=== PATIENT | female | born 1935 | race Caucasian/White ===

== ENCOUNTER 2017-11-30 02:11 | Emergency (ER) | payer MEDICARE, BC | END 2017-11-30 04:39 | disposition home or self-care (01) | LOC: ERS 02:11 | DX: E11.65 Type 2 diabetes mellitus with hyperglycemia (principal); E78.5 Hyperlipidemia, unspecified; I10 Essential (primary) hypertension | CPT/HCPCS: 36416; 99284 ==

== ENCOUNTER 2023-01-14 08:52 | Emergency (ER) | payer MEDICARE, BC ==
[2023-01-14 10:04] LABS: #Basophils 0.1 thou/uL (0.0-0.2); #Monocytes 0.6 thou/uL (0.11-0.59); #Neutrophils 10.1 thou/uL (1.40-6.50); %Basophils 0.4 % (0.0-1.0); %Eosinophils 0.3 % (0.0-10.0); %Lymphocytes 3.2 % (21.0-51.0); %Monocytes 5.1 % (0.0-10.0); %Neutrophils 90.5 % (42.0-75.0); Hematocrit 32.8 % (36.0-47.0); Hemoglobin 10.7 g/dL (12.0-16.0); Mean Corpuscular HGB CONC 32.6 g/dL (32.0-36.0); Mean Corpuscular Hemoglobin 28.3 pg (27.0-31.0); Mean Corpuscular Volume 86.8 fl (78.0-98.0); Mean Platelet Volume 10.5 fL (7.4-10.4); Platelet Count 248 10x3/uL (130-400); RBC Distribution Width 15.1 % (11.5-14.5); Red Blood Cell (RBC) Count 3.78 mill/uL (4.20-5.40); White Blood Cell (WBC) Count 11.2 10x3/uL (4.8-10.8)
[2023-01-14 10:07] LABS: Bilirubin Negative (Negative); Blood, Urine 1+ (Negative); CAUTI Indications for Culture Dysuria,urgency,freq; Clarity Turbid (Clear); Glucose, Urine (Dipstick) Normal (Negative); Ketone, Urine 10 mg/dL (Negative); Leukocyte Negative Leu/uL (Negative); Nitrite Negative (Negative); Protein, Urine (Dipstick) 50 mg/dL (Neg-Trace); RBC/HPF 0-3 HPF (0-3); Specific Gravity, Urine 1.025 (1.002-1.036); Squamous Epithelial None Seen HPF (0-3); Urobilinogen Normal mg/dL (Less than 2); WBC/HPF 0-3 HPF (0-3); pH, Urine 5.5 (5.0-9.0)
[2023-01-14 10:09] LABS: Bacteria/HPF 1+ HPF (None Seen)
[2023-01-14 10:10] LABS: Urine Culture Reflex No No
[2023-01-14 10:26] LABS: ALT (SGPT) 16 U/L (8-55); AST (SGOT) 26 U/L (5-34); Albumin 3.9 g/dL (3.4-4.8); Alkaline Phosphatase 61 U/L (40-110); Anion Gap 16 mmol/L (10-20); BUN (Urea Nitrogen) 37 mg/dL (9.8-20.1); Bilirubin, Total 0.4 mg/dL (0.2-1.2); CK (CPK) 296 U/L (29-168); Calc. Creatinine Clearance 0 mL/min (70-130); Calcium 8.5 mg/dL (7.8-10.44); Carbon Dioxide 19 mmol/L (23-31); Chloride 107 mmol/L (98-107); Estimated GFR 36; Globulin 2.5 g/dL (2.4-3.5); Glucose 276 mg/dL (83-110); Potassium 3.7 mmol/L (3.5-5.1); Protein, Total 6.4 g/dL (5.8-8.1); Sodium 138 mmol/L (136-145)
== END 2023-01-14 12:17 | disposition home or self-care (01) ==
LOC: ERS 08:52
DX: M25.552 Pain in left hip (principal); E11.9 Type 2 diabetes mellitus without complications; E03.9 Hypothyroidism, unspecified; E78.5 Hyperlipidemia, unspecified; I10 Essential (primary) hypertension; W17.89XA Other fall from one level to another, initial encounter
CPT/HCPCS: 51701; 80053; 81001; 82550; 85025; 93005; 96360

== ENCOUNTER 2023-03-06 19:48 | Inpatient (IN) | payer MEDICARE, BC ==
[~2023-03-06 19:48] MED LIST: Iopamidol-370 76% 500 ML MDV (1 ML CHARGE) ONE
[2023-03-06 20:08] LABS: Analyzer IN Cardio ER; Base Excess (BEa) -18.9 mEq/L (-2.0 to +3.0); CO2 Tension 36.6 mmHg (35.0-45.0); Calcium, Ionized (arterial) 1.16 mmol/L (1.12-1.30); Carboxyhemoglobin (COHb) 0.3 gm% (0.0-3.0); Hematocrit-ABG 34 % (36.0-47.0); Hemoglobin (Hb) 11.7 g/dL (12.0-16.0); O2 Tension (PaO2), arterial 398.6 mmHg (> 60.0); Potassium - ABG Lab 4.54 mmol/L (3.70-5.30)
[2023-03-06 20:12] LABS: #Basophils 0.1 thou/uL (0.0-0.2); #Monocytes 0.4 thou/uL (0.11-0.59); %Basophils 0.7 % (0.0-1.0); %Lymphocytes 25.8 % (21.0-51.0); %Monocytes 4.9 % (0.0-10.0); %Neutrophils 68.3 % (42.0-75.0); Hemoglobin 10.7 g/dL (12.0-16.0); Mean Corpuscular HGB CONC 30.6 g/dL (32.0-36.0); Mean Corpuscular Hemoglobin 28.7 pg (27.0-31.0); Mean Corpuscular Volume 93.8 fl (78.0-98.0); Mean Platelet Volume 11.7 fL (7.4-10.4); Platelet Count 215 10x3/uL (130-400); RBC Distribution Width 15.8 % (11.5-14.5); Red Blood Cell (RBC) Count 3.73 mill/uL (4.20-5.40); White Blood Cell (WBC) Count 8.8 10x3/uL (4.8-10.8)
[2023-03-06] MEDS ORDERED: Fentanyl CADD 100 ML IV SCH (20:15)
[2023-03-06 20:37] LABS: ALT (SGPT) 16 U/L (8-55); AST (SGOT) 32 U/L (5-34); Albumin 3.8 g/dL (3.4-4.8); Alkaline Phosphatase 72 U/L (40-110); Anion Gap 27 mmol/L (10-20); BUN (Urea Nitrogen) 22 mg/dL (9.8-20.1); Bilirubin, Total 0.3 mg/dL (0.2-1.2); Calc. Creatinine Clearance 0 mL/min (70-130); Calcium 8.7 mg/dL (7.8-10.44); Carbon Dioxide 11 mmol/L (23-31); Chloride 101 mmol/L (98-107); Estimated GFR 31; Globulin 3.4 g/dL (2.4-3.5); Glucose 321 mg/dL (83-110); Lipase 31 U/L (8-78); Magnesium 1.3 mg/dL (1.6-2.6); Potassium 4.6 mmol/L (3.5-5.1); Protein, Total 7.2 g/dL (5.8-8.1); Sodium 134 mmol/L (136-145)
[2023-03-06 20:49] LABS: Troponin I 0.321 ng/mL (< 0.028)
[2023-03-06] MEDS ORDERED: Sodium Chloride 0.9% 100 ML ONE (20:51)
[2023-03-06] MEDS ORDERED: cefTRIAXone (ROCEPHIN) 1 GM VIAL ONE (20:51)
[2023-03-06] MEDS ORDERED: Azithromycin 500 MG VIAL ONE (20:51)
[2023-03-06] MEDS ORDERED: cefTRIAXone (ROCEPHIN) 2 GM VIAL ONE (20:53)
[2023-03-06 21:01] LABS: Bacteria/HPF 1+ HPF (None Seen); Bilirubin Negative (Negative); Blood, Urine 2+ (Negative); CAUTI Indications for Culture Urological Procedure; Clarity Clear (Clear); Glucose, Urine (Dipstick) 70 mg/dL (Negative); Ketone, Urine Negative (Negative); Leukocyte Negative Leu/uL (Negative); Nitrite Negative (Negative); Protein, Urine (Dipstick) 50 mg/dL (Neg-Trace); Specific Gravity, Urine 1.043 (1.002-1.036); Squamous Epithelial None Seen HPF (0-3); Urobilinogen Normal mg/dL (Less than 2); WBC/HPF 0-3 HPF (0-3); pH, Urine 6.5 (5.0-9.0)
[2023-03-06 21:02] LABS: Urine Culture Reflex Yes Yes
[2023-03-06] MEDS ORDERED: Acetaminophen 650 MG Suppository ONE (21:05)
[2023-03-06] MEDS ORDERED: Aspirin 300 MG Suppository ONE (21:06)
[2023-03-06] MEDS ORDERED: Magnesium 2 GM/50 ML BAG (IN WATER) ONE (21:06)
[2023-03-06 21:28] LABS: SARS-CoV-2 NAA Rapid Test Not Detected (NotDetected)
[2023-03-06] MEDS ORDERED: Insulin Regular 300 UNITS/3 ML VIAL ONE (21:36)
[2023-03-06] MEDS ORDERED: Acetaminophen 325 MG TAB PO PRN (21:56)
[2023-03-06] MEDS ORDERED: Ondansetron PF 4 MG/2 ML Vial IVP PRN (21:56)
[2023-03-06] MEDS ORDERED: Acetaminophen 650 MG Suppository PR PRN (21:56)
[2023-03-06] MEDS ORDERED: Ondansetron ODT 4 MG TAB PO PRN (21:56)
[2023-03-06] MEDS ORDERED: Fentanyl BOLUS 250 ML IVPB PRN (22:15)
[2023-03-06] MEDS ORDERED: Lorazepam 2 MG/ML VIAL SLOW IVP PRN (22:15)
[2023-03-06] MEDS ORDERED: Propofol 1,000 MG/100 ML VIAL IV PRN (22:15)
[2023-03-06] MEDS ORDERED: Electrolyte Replacement Protocol 1 EACH FS SCH (22:15)
[2023-03-06] MEDS ORDERED: Ventilator Sedation Protocol 1 EACH FS SCH (22:15)
[2023-03-06] MEDS ORDERED: Morphine 2 MG/ML VIAL SLOW IVP PRN (22:15)
[2023-03-06] MEDS ORDERED: Propofol BOLUS 1,000 MG/100 ML VIAL IV PRN (22:15)
[2023-03-06] MEDS ORDERED: Metoprolol Tartrate 5 MG/5 ML VIAL IV PRN (22:52)
[2023-03-06] MEDS ORDERED: Oseltamivir 6 MG/ML ORAL SUSP PO SCH (23:00)
[2023-03-06] MEDS: Sodium Bicarbonate 150 MEQ in Sterile Water 1,000 ML IV SCH (23:05)
[2023-03-06 23:23] LABS: Actual Bicarbonate (HCO3a) 10.3 mEq/L (22-28); Puncture Site RBA; pH, Arterial 7.069 (7.35-7.45)
[2023-03-06] MEDS ORDERED: Magnesium 2 GM/50 ML(in water) 2 GM in Premix 1 BAG IVPB SCH (23:30)
[2023-03-06] MEDS ORDERED: Sodium Bicarb 50 MEQ/50 ML Abboject 8.4% SYRINGE IVP SCH (23:45)
[2023-03-06] MEDS ORDERED: Sodium Bicarb 50 MEQ/50 ML VIAL ONE (23:50)
[2023-03-06 23:57] LABS: Base Excess (BEa) -3.6 mEq/L (-2.0 to +3.0); Calcium, Ionized (arterial) 1.09 mmol/L (1.12-1.30); Carboxyhemoglobin (COHb) 0.1 gm% (0.0-3.0); Hematocrit-ABG 31 % (36.0-47.0); Hemoglobin (Hb) 10.6 g/dL (12.0-16.0); O2 Tension (PaO2), arterial 72.8 mmHg (> 60.0); Potassium - ABG Lab 3.76 mmol/L (3.70-5.30); pH, Arterial 7.513 (7.35-7.45)
[2023-03-06 23:58] LABS: CO2 Tension 22.9 mmHg (35.0-45.0); Puncture Site RRA
[2023-03-06 23:59] LABS: ALV-art Gradient 183.775 mmHg (0-20)
[2023-03-07 00:02] LABS: Lactic Acid 3.8 mmol/L (0.5-2.2)
[2023-03-07 00:12] LABS: Troponin I 1.206 ng/mL (< 0.028)
[2023-03-07] MEDS ORDERED: Sodium Chloride 0.9% 500 ML IV SCH (01:00)
[2023-03-07 01:30] VITALS: BMI 20.1
[2023-03-07 03:45] LABS: #Monocytes 0.5 thou/uL (0.11-0.59); #Neutrophils 9.8 thou/uL (1.40-6.50); %Basophils 0.1 % (0.0-1.0); %Lymphocytes 5.1 % (21.0-51.0); %Monocytes 4.5 % (0.0-10.0); %Neutrophils 89.8 % (42.0-75.0); Hemoglobin 9.3 g/dL (12.0-16.0); Mean Corpuscular HGB CONC 32.1 g/dL (32.0-36.0); Mean Corpuscular Hemoglobin 27.8 pg (27.0-31.0); Mean Platelet Volume 11.2 fL (7.4-10.4); Platelet Count 157 10x3/uL (130-400); RBC Distribution Width 15.7 % (11.5-14.5); Red Blood Cell (RBC) Count 3.35 mill/uL (4.20-5.40); White Blood Cell (WBC) Count 10.9 10x3/uL (4.8-10.8)
[2023-03-07 04:11] LABS: Anion Gap 18 mmol/L (10-20); BUN (Urea Nitrogen) 24 mg/dL (9.8-20.1); Calc. Creatinine Clearance 27 mL/min (70-130); Calcium 7.7 mg/dL (7.8-10.44); Carbon Dioxide 21 mmol/L (23-31); Chloride 100 mmol/L (98-107); Estimated GFR 44; Glucose 191 mg/dL (83-110); Potassium 3.5 mmol/L (3.5-5.1); Sodium 135 mmol/L (136-145)
[2023-03-07 04:16] LABS: Magnesium 7.6 mg/dL (1.6-2.6); Troponin I 3.951 ng/mL (< 0.028)
[2023-03-07] MEDS ORDERED: Heparin 25,000 units/D5W 500 ML IVPB SCH ×2 (04:45→06:15)
[2023-03-07] MEDS ORDERED: Heparin 10,000 UNITS/ 10 ML VIAL SLOW IVP SCH ×3 (04:45→07:45)
[2023-03-07 05:28] LABS: Hematocrit 28.8 % (36.0-47.0); Hemoglobin 9.3 g/dL (12.0-16.0); Platelet Count 161 10x3/uL (130-400)
[2023-03-07 05:38] LABS: Mean Corpuscular Volume 86.6 fl (78.0-98.0)
[2023-03-07] MEDS ORDERED: DC ALL OTHER HEPARIN PRODUCTS FS SCH (06:45)
[2023-03-07] MEDS ORDERED: Heparin 25,000 units/D5W 500 ML IV SCH (06:45)
[2023-03-07 07:42] LABS: Actual Bicarbonate (HCO3a) 23.8 mEq/L (22-28); Base Excess (BEa) 0.9 mEq/L (-2.0 to +3.0); CO2 Tension 32.2 mmHg (35.0-45.0); Calcium, Ionized (arterial) 1.03 mmol/L (1.12-1.30); Carboxyhemoglobin (COHb) 0.3 gm% (0.0-3.0); Hematocrit-ABG 32 % (36.0-47.0); O2 Tension (PaO2), arterial 124.8 mmHg (> 60.0); Potassium - ABG Lab 3.42 mmol/L (3.70-5.30); pH, Arterial 7.487 (7.35-7.45)
[2023-03-07 07:43] LABS: Puncture Site RRA
[2023-03-07] MEDS ORDERED: Famotidine/PF 20 mg/2ml Vial SLOW IVP SCH (09:00)
[2023-03-07] MEDS ORDERED: DC Sedation Protocol FS ONE (09:26)
[2023-03-07] MEDS: Potassium Chloride 20 MEQ in Premix 1 BAG IVPB SCH ×2 (10:09→11:36)
[2023-03-07] MEDS: Sodium Bicarbonate 150 MEQ in Sterile Water 1,000 ML IV SCH ×2 (10:09→22:17)
[2023-03-07 11:59] LABS: PTT Greater than 250.0 sec (22.9-36.1)
[2023-03-07] MEDS ORDERED: Lisinopril 10 MG TAB PO SCH (14:00)
[2023-03-07 16:01] LABS: Potassium 3.6 mmol/L (3.5-5.1)
[2023-03-07 16:02] LABS: Glucose 200 mg/dL (83-110)
[2023-03-07 18:51] LABS: Glucose 187 mg/dL (83-110)
[2023-03-07] MEDS ORDERED: Dextrose 50% Abboject 50 ML SYRINGE SLOW IVP PRN (20:43)
[2023-03-07] MEDS ORDERED: Glucagon 1 MG/ML KIT IM PRN (20:43)
[2023-03-07] MEDS ORDERED: Dextrose 5% in Water 1,000 ML IV PRN (20:43)
[2023-03-07] MEDS: Azithromycin 500 MG in Sodium Chloride 0.9% 250 ML 250 ML IVPB SCH (21:13)
[2023-03-07] MEDS: cefTRIAXone\\ROCEPHIN 2 GM in Sodium Chloride 0.9% 100 ML IVPB SCH (21:15)
[2023-03-07] MEDS: Insulin Regular 300 UNITS/3 ML VIAL SC PRN (21:28)
[2023-03-07] MEDS: Oseltamivir 6 MG/ML ORAL SUSP PO SCH ×2 (22:16→22:21)
[2023-03-08 00:05] LABS: Glucose 174 mg/dL (83-110)
[2023-03-08 05:48] LABS: #Monocytes 0.5 thou/uL (0.11-0.59); #Neutrophils 9.4 thou/uL (1.40-6.50); %Basophils 0.3 % (0.0-1.0); %Monocytes 4.4 % (0.0-10.0); %Neutrophils 82.9 % (42.0-75.0); Hematocrit 31.6 % (36.0-47.0); Mean Corpuscular HGB CONC 31.6 g/dL (32.0-36.0); Mean Corpuscular Hemoglobin 27.5 pg (27.0-31.0); Mean Corpuscular Volume 87.1 fl (78.0-98.0); Mean Platelet Volume 11.9 fL (7.4-10.4); Platelet Count 199 10x3/uL (130-400); RBC Distribution Width 16.2 % (11.5-14.5); Red Blood Cell (RBC) Count 3.63 mill/uL (4.20-5.40); White Blood Cell (WBC) Count 11.3 10x3/uL (4.8-10.8)
[2023-03-08] MEDS: Levothyroxine Sodium 88 MCG TAB PO SCH (06:07)
[2023-03-08 06:24] LABS: Anion Gap 16 mmol/L (10-20); BUN (Urea Nitrogen) 25 mg/dL (9.8-20.1); Calc. Creatinine Clearance 27 mL/min (70-130); Carbon Dioxide 27 mmol/L (23-31); Cardiac Risk 3.3 (Less than 4.5); Chloride 97 mmol/L (98-107); Cholesterol 130 mg/dl (< 200 Desired); Estimated GFR 44; Glucose 155 mg/dL (83-110); HDL Cholesterol 40 mg/dL (>60 Neg Risk); LDL Cholesterol, Calculated 69 mg/dL; Potassium 3.7 mmol/L (3.5-5.1); Sodium 136 mmol/L (136-145); Triglycerides 106 mg/dL (Less than 150)
[2023-03-08] MEDS: Famotidine 20 MG TAB PO SCH (08:43)
[2023-03-08] MEDS: Aspirin 81 mg Enteric Coated Tablet PO SCH (08:43)
[2023-03-08] MEDS: Atorvastatin Calcium 40 MG TAB PO SCH (08:44)
[2023-03-08] MEDS: Ferrous Sulfate 325 MG TAB PO SCH (08:44)
[2023-03-08] MEDS ORDERED: Lisinopril 10 MG TAB PO SCH (09:00)
[2023-03-08] MEDS: Sodium Bicarbonate 150 MEQ in Sterile Water 1,000 ML IV SCH ×2 (14:51→21:28)
[2023-03-08] MEDS: cefTRIAXone\\ROCEPHIN 2 GM in Sodium Chloride 0.9% 100 ML IVPB SCH (21:12)
[2023-03-08] MEDS: Azithromycin 500 MG in Sodium Chloride 0.9% 250 ML 250 ML IVPB SCH (21:27)
[2023-03-08] MEDS: Oseltamivir 6 MG/ML ORAL SUSP PO SCH (21:32)
[2023-03-08] MEDS: Insulin Regular 300 UNITS/3 ML VIAL SC PRN (21:40)
[2023-03-08 22:46] LABS: Anion Gap 16 mmol/L (10-20); BUN (Urea Nitrogen) 20 mg/dL (9.8-20.1); Calc. Creatinine Clearance 31 mL/min (70-130); Calcium 7.8 mg/dL (7.8-10.44); Carbon Dioxide 26 mmol/L (23-31); Chloride 96 mmol/L (98-107); Estimated GFR 52; Glucose 232 mg/dL (83-110); Magnesium 1.7 mg/dL (1.6-2.6); Potassium 3.9 mmol/L (3.5-5.1); Sodium 134 mmol/L (136-145)
[2023-03-08] MEDS ORDERED: Magnesium 2 GM/50 ML(in water) 2 GM in Premix 1 BAG IVPB SCH (23:59)
[2023-03-09] MEDS: Sodium Bicarbonate 150 MEQ in Sterile Water 1,000 ML IV SCH (05:06)
[2023-03-09] MEDS: Levothyroxine Sodium 88 MCG TAB PO SCH (05:09)
[2023-03-09] MEDS: Atorvastatin Calcium 40 MG TAB PO SCH (08:39)
[2023-03-09] MEDS: Famotidine 20 MG TAB PO SCH (08:40)
[2023-03-09] MEDS: Lisinopril 20 MG TAB PO SCH (08:40)
[2023-03-09] MEDS: Aspirin 81 mg Enteric Coated Tablet PO SCH (08:40)
[2023-03-09] MEDS: Ferrous Sulfate 325 MG TAB PO SCH (08:41)
[2023-03-09] MEDS: Insulin Regular 300 UNITS/3 ML VIAL SC PRN (13:23)
[2023-03-09] MEDS: Azithromycin 500 MG in Sodium Chloride 0.9% 250 ML 250 ML IVPB SCH (20:44)
[2023-03-09] MEDS: cefTRIAXone\\ROCEPHIN 2 GM in Sodium Chloride 0.9% 100 ML IVPB SCH (20:45)
[2023-03-09] MEDS: Oseltamivir 6 MG/ML ORAL SUSP PO SCH (20:46)
[2023-03-10] MEDS: Sodium Bicarbonate 150 MEQ in Sterile Water 1,000 ML IV SCH ×2 (01:08→20:55)
[2023-03-10] MEDS: Levothyroxine Sodium 88 MCG TAB PO SCH (07:03)
[2023-03-10] MEDS: Ferrous Sulfate 325 MG TAB PO SCH (09:05)
[2023-03-10] MEDS: Lisinopril 20 MG TAB PO SCH ×2 (09:11→20:54)
[2023-03-10] MEDS: Famotidine 20 MG TAB PO SCH (09:11)
[2023-03-10] MEDS: Aspirin 81 mg Enteric Coated Tablet PO SCH (09:11)
[2023-03-10] MEDS: Atorvastatin Calcium 40 MG TAB PO SCH (09:11)
[2023-03-10] MEDS: cefTRIAXone\\ROCEPHIN 2 GM in Sodium Chloride 0.9% 100 ML IVPB SCH (20:54)
[2023-03-10] MEDS: Oseltamivir 6 MG/ML ORAL SUSP PO SCH (20:55)
[2023-03-11] MEDS: hydrALAZINE 20 MG/ML VIAL SLOW IVP PRN ×2 (00:03→13:08)
[2023-03-11] MEDS: Levothyroxine Sodium 88 MCG TAB PO SCH (05:22)
[2023-03-11] MEDS: Insulin Regular 300 UNITS/3 ML VIAL SC PRN ×4 (05:24→20:38)
[2023-03-11] MEDS: Lisinopril 20 MG TAB PO SCH ×2 (08:37→20:21)
[2023-03-11] MEDS: Atorvastatin Calcium 40 MG TAB PO SCH (08:38)
[2023-03-11] MEDS: Ferrous Sulfate 325 MG TAB PO SCH (08:38)
[2023-03-11] MEDS: Aspirin 81 mg Enteric Coated Tablet PO SCH (08:39)
[2023-03-11] MEDS: Famotidine 20 MG TAB PO SCH (08:39)
[2023-03-11 09:51] LABS: Hematocrit 36.8 % (36.0-47.0); Manual Diff?? YES; Mean Corpuscular HGB CONC 32.6 g/dL (32.0-36.0); Mean Corpuscular Hemoglobin 28.6 pg (27.0-31.0); Mean Corpuscular Volume 87.8 fl (78.0-98.0); Mean Platelet Volume 11.2 fL (7.4-10.4); Platelet Count 309 10x3/uL (130-400); RBC Distribution Width 15.4 % (11.5-14.5); Red Blood Cell (RBC) Count 4.19 mill/uL (4.20-5.40)
[2023-03-11 09:57] LABS: Delete Auto Diff?? YES
[2023-03-11 10:04] LABS: Anion Gap 15 mmol/L (10-20); BUN (Urea Nitrogen) 10 mg/dL (9.8-20.1); Calc. Creatinine Clearance 40 mL/min (70-130); Calcium 8.4 mg/dL (7.8-10.44); Carbon Dioxide 31 mmol/L (23-31); Chloride 86 mmol/L (98-107); Estimated GFR 63; Glucose 230 mg/dL (83-110); Potassium 2.8 mmol/L (3.5-5.1); Sodium 129 mmol/L (136-145)
[2023-03-11 10:29] LABS: Anisocytosis SLIGHT = 6-15 cells HPF (0-5); CellaVision Operator ID lab.dlt; Large Platelets 3.1 % (0-5); Lymphocytes 3 % (21-51); Monocytes 2 % (0-10); Neutrophil 95 % (42-75); Platelet Adequacy Comment Platelets Normal; Poikilocytosis SLIGHT = 6-15 cells HPF (0-5); Polychromasia SLIGHT = 2-3 cells HPF (0-2); Total Cell Count 96
[2023-03-11] MEDS: Sodium Bicarbonate 150 MEQ in Sterile Water 1,000 ML IV SCH ×3 (10:35→23:30)
[2023-03-11] MEDS: Potassium Chloride 20 MEQ TAB PO SCH ×2 (11:05→12:56)
[2023-03-11] MEDS: cefTRIAXone\\ROCEPHIN 2 GM in Sodium Chloride 0.9% 100 ML IVPB SCH (20:21)
[2023-03-12] MEDS: Levothyroxine Sodium 88 MCG TAB PO SCH (05:28)
[2023-03-12] MEDS: Famotidine 20 MG TAB PO SCH (09:05)
[2023-03-12 09:08] LABS: Anion Gap 18 mmol/L (10-20); BUN (Urea Nitrogen) 14 mg/dL (9.8-20.1); Calc. Creatinine Clearance 43 mL/min (70-130); Calcium 8.2 mg/dL (7.8-10.44); Carbon Dioxide 21 mmol/L (23-31); Chloride 95 mmol/L (98-107); Estimated GFR 62; Glucose 152 mg/dL (83-110); Potassium 3.7 mmol/L (3.5-5.1); Sodium 130 mmol/L (136-145)
[2023-03-12] MEDS: Lisinopril 20 MG TAB PO SCH ×2 (09:09→20:23)
[2023-03-12] MEDS: Ferrous Sulfate 325 MG TAB PO SCH (09:09)
[2023-03-12] MEDS: Atorvastatin Calcium 40 MG TAB PO SCH (09:09)
[2023-03-12] MEDS: Aspirin 81 mg Enteric Coated Tablet PO SCH (09:09)
[2023-03-12] MEDS: Insulin Regular 300 UNITS/3 ML VIAL SC PRN (11:54)
[2023-03-12] MEDS: cefTRIAXone\\ROCEPHIN 2 GM in Sodium Chloride 0.9% 100 ML IVPB SCH (20:22)
[2023-03-13] MEDS: Insulin Regular 300 UNITS/3 ML VIAL SC PRN ×3 (06:03→20:36)
[2023-03-13] MEDS: Levothyroxine Sodium 88 MCG TAB PO SCH (06:04)
[2023-03-13] MEDS: Aspirin 81 mg Enteric Coated Tablet PO SCH (08:56)
[2023-03-13] MEDS: Lisinopril 20 MG TAB PO SCH ×2 (08:56→20:36)
[2023-03-13] MEDS: Atorvastatin Calcium 40 MG TAB PO SCH (08:56)
[2023-03-13] MEDS: Famotidine 20 MG TAB PO SCH (08:57)
[2023-03-13] MEDS: Ferrous Sulfate 325 MG TAB PO SCH (08:57)
[2023-03-14] MEDS: Levothyroxine Sodium 88 MCG TAB PO SCH (05:52)
[2023-03-14] MEDS: Ferrous Sulfate 325 MG TAB PO SCH (08:57)
[2023-03-14] MEDS: Aspirin 81 mg Enteric Coated Tablet PO SCH (08:58)
[2023-03-14] MEDS: Lisinopril 20 MG TAB PO SCH (08:58)
[2023-03-14] MEDS: Famotidine 20 MG TAB PO SCH (08:58)
[2023-03-14] MEDS: Atorvastatin Calcium 40 MG TAB PO SCH (08:58)
[2023-03-14 12:22] VITALS: BP 183/77; TEMP 98.7
== END 2023-03-14 15:08 | disposition home health service (06) | DRG 871 ==
LOC: ERS 19:48 → CCU 21:20 → 2NO 03-07 14:31
PROVIDERS: ADMIT Student in an Organized Health Care Education/Training Program; ATTEND Internal Medicine
PROC: 0BH17EZ Insertion of Endotracheal Airway into Trachea, Via Natural or Artificial Opening (ICD-10-PCS; principal; 2023-03-06)
PROC: 4A133R1 Monitoring of Arterial Saturation, Peripheral, Percutaneous Approach (ICD-10-PCS; 2023-03-06)
PROC: 3E03329 Introduction of Other Anti-infective into Peripheral Vein, Percutaneous Approach (ICD-10-PCS; 2023-03-06)
PROC: 5A1935Z Respiratory Ventilation, Less than 24 Consecutive Hours (ICD-10-PCS; 2023-03-06)
DX: A41.9 Sepsis, unspecified organism (principal); G93.41 Metabolic encephalopathy; J18.9 Pneumonia, unspecified organism; J96.01 Acute respiratory failure with hypoxia; I21.4 Non-ST elevation (NSTEMI) myocardial infarction; I50.32 Chronic diastolic (congestive) heart failure; E87.20 Acidosis, unspecified; I13.0 Hypertensive heart and chronic kidney disease with heart failure and stage 1 through stage 4 chronic kidney disease, or unspecified chronic kidney disease; N17.9 Acute kidney failure, unspecified; E87.1 Hypo-osmolality and hyponatremia; R65.20 Severe sepsis without septic shock; E78.00 Pure hypercholesterolemia, unspecified; G47.33 Obstructive sleep apnea (adult) (pediatric); E78.5 Hyperlipidemia, unspecified; N18.9 Chronic kidney disease, unspecified; D63.1 Anemia in chronic kidney disease; J11.1 Influenza due to unidentified influenza virus with other respiratory manifestations; H74.8X3 Other specified disorders of middle ear and mastoid, bilateral; I65.21 Occlusion and stenosis of right carotid artery; Z96.642 Presence of left artificial hip joint; Z88.0 Allergy status to penicillin; Z88.2 Allergy status to sulfonamides; Z91.012 Allergy to eggs; Z79.899 Other long term (current) drug therapy; Z79.82 Long term (current) use of aspirin; Z79.890 Hormone replacement therapy; Z90.49 Acquired absence of other specified parts of digestive tract; Z11.52 Encounter for screening for COVID-19
CPT/HCPCS: 36415; 36416; 36600; 51702; 70450; 70496; 70498; 71045; 72125; 80048; 80053; 80061; 81001; 82010; 82550; 82805; 83605; 83690; 83735; 83880; 84145; 84146; 84443; 84484; 85025; 85730; 87040; 87086; 93005; 93306; 94002; 94003; 96365; 96367; 96368; 96375; A4217; J0360; J0456; J0696; J1644; J1815; J3010; J3475; J3480; J3490; J7030; J7050; Q9967; S0028